=== PATIENT | male | born 1995 | race Caucasian/White ===

== ENCOUNTER 2024-01-13 10:18 | Emergency (ER) | payer BC, SELFPAY ==
[2024-01-13 11:00] VITALS: BP 148/87; PULSE 95; RESP 16; TEMP 36.7; O2SAT 100
--- NOTE | 2024-01-13 11:08 | ED.SKABFB ---
HPI - Skin/Abscess/Foreign Bdy General Chief complaint: Skin/Abscess/Foreign Body Stated complaint: insect bite Time Seen by Provider: 01/13/24 11:08 Source: patient Mode of arrival: ambulatory Limitations: no limitations History of Present Illness HPI narrative: patient reports that he was bitten by an insect or a spider 1 week ago. the bite is on the right upper leg. He reports that he is not having any itching or pain, but the site is becoming redder and larger by the day. He has not taken anything for his symptoms. He did not see what bit him Related Data Home Medications Medication Instructions Recorded Confirmed venlafaxine 37.5 mg 37.5 mg PO DAILY 01/13/24 01/13/24 capsule,extended release 24 hr Allergies Allergy/AdvReac Type Severity Reaction Status Date / Time No Known Allergies Allergy Verified 01/13/24 11:07 Review of Systems Review of Systems: All systems reviewed & are unremarkable except as noted in HPI and below Constitutional: Constitutional: Reports no additional constitutional complaints ENT: Reports system reviewed and no additional complaints, except as documented Cardiovascular: Cardiovascular: Reports no additional cardiovascular complaints Respiratory: Respiratory: Reports no additional respiratory complaints Gastrointestinal: Gastrointestinal: Reports no additional gastrointestinal complaints Integumentary/Breasts: Skin/Breast: Reports as per HPI Exam Const: General: cooperative, no acute distress, alert and awake Orientation/consciousness: oriented to person, oriented to place and oriented to time HENMT: Head: normal to inspection Resp: Effort & Inspection: normal respiratory effort and able to speak in complete sentences Auscultation: clear to auscultation bilaterally, no crackles, no rales, no rhonchi and no wheezes Cardio: Palpation: normal PMI Rate: regular rate Rhythm: regular rhythm Heart sounds: S1 normal heart sound present and S2 normal heart sound present Skin: Full body images: 1. 7 x 4 cm area of erythema, warmth. No drainage. There is a central opening consistent with bite 2. 1 x 1 cm circular area of erythema and warmth without drainage. Central opening consistent with bite Neuro: General: oriented to person, oriented to place and oriented to time Cranial nerves: Yes CN's II-XII intact bilaterally Psych: Appearance: grossly normal Thought process: Normal thought process present Insight: Good insight present (Psych) Judgement: Good judgement present (Psych) Course Course Level of Care: Express Care Visit Vital Signs Vital signs: Vital Signs Temperature 98.1 F 01/13/24 11:00 Pulse Rate 95 01/13/24 11:00 Respiratory Rate 16 01/13/24 11:00 Blood Pressure 148/87 H 01/13/24 11:00 Pulse Oximetry 100 01/13/24 11:00 Oxygen Delivery Room Air 01/13/24 11:00 Temperature 98.1 F 01/13/24 11:00 Pulse Rate 95 01/13/24 11:00 Respiratory Rate 16 01/13/24 11:00 Blood Pressure 148/87 H 01/13/24 11:00 Pulse Oximetry 100 01/13/24 11:00 Oxygen Delivery Room Air 01/13/24 11:00 MDM - Skin/Abscess/Foreign Bdy MDM Narrative Medical decision making narrative: patient nontoxic appearing, complaining of presumed insect or spider bite to the right leg. Exam is consistent with cellulitis. Discharge home with p.o. antibiotics. Elevated blood pressure discussed with patient. Primary care provider follow-up recommended. Emergency department for new or worse symptoms. Discharge instructions reviewed with patient, as well as provided in writing per nursing staff. The instructions also include specific and strict return/GO TO THE ER as well as f/u information. All questions have been answered, and the patient deny any further questions with discharge and discharge plan. Some parts of this dictation were generated by voice recognition software and may contain typographical and/or grammatical inaccuracies. Differenti
== END 2024-01-13 11:26 | disposition home or self-care (01) ==
PROVIDERS: Emergency Provider Nurse Practitioner Family; PCP Nurse Practitioner
DX: L03.115 Cellulitis of right lower limb (principal)
CPT/HCPCS: 99203; G0463